=== PATIENT | female | born 1995 | race Caucasian/White ===

== ENCOUNTER 2021-01-05 00:19 | Inpatient (IN) ==
[2021-01-05] MEDS ORDERED: BUTORPHANOL 2 MG/ML VIAL IV PRN (00:30)
[2021-01-05] MEDS ORDERED: ONDANSETRON 4 MG/2 ML VIAL IV PRN ×2 (00:30→13:53)
[2021-01-05] MEDS ORDERED: LACTATED RINGERS 1,000 ML IV ONE (00:30)
[2021-01-05] MEDS ORDERED: MEPERIDINE 50 MG/1 ML VIAL IV PRN (00:30)
[2021-01-05] MEDS ORDERED: INFLUENZA VIRUS VACCINE 0.5 ML SYRINGE IM ONE (01:00)
[2021-01-05 01:13] LABS: Basophils % 0.2 % (0.0-0.8); Eosinophils % 0.1 % (0.00-10.9); Hemoglobin 10.9 GM/DL (12.0-16.0); Immature Granulocytes Absolute 0.17 #; Lymphocytes # 2.4 10*3/uL (1.4-4.0); Lymphocytes % 14.5 % (21.3-54.2); Mean Corpuscular HGB Conc 31.1 GM/DL (32-36); Mean Corpuscular Volume 86.6 FL (87-102); Monocytes % 8.4 % (1.7-12.7); Neutrophils % 75.8 % (38.7-73.9); Platelet Count 275 T/CUMM (130-400); Red Blood Count 4.04 MC/CUMM (3.8-5.5); Red Cell Distribution Width 13.8 % (9.3-17.3); White Blood Count 16.6 T/CUMM (4-12)
[2021-01-05 01:26] LABS: Alanine Aminotransferase 14 U/L (13-56); Albumin 2.8 G/DL (3.4-5.0); Alkaline Phosphatase 164 U/L (45-117); Aspartate Amino Transferase 15 U/L (0-37); Bilirubin,Total < 0.39 MG/DL (0.20-1.00); Blood Urea Nitrogen 9 MG/DL (7-18); Calcium 8.6 MG/DL (8.5-10.1); Carbon Dioxide 21 MMOL/L (21-32); Estimated Glom Filtration Rate 83 ML/MIN; Glucose 86 MG/DL (74-106); Osmolality,Calculated 270.8 MOS/KG (273-304); Potassium 3.9 MMOL/L (3.5-5.1); Sodium 137 MMOL/L (136-145); Total Protein 6.8 G/DL (6.4-8.2)
[2021-01-05] MEDS: LACTATED RINGERS 1,000 ML IV SCH ×2 (03:57→10:00)
[2021-01-05] MEDS ORDERED: OXYTOCIN/LR 20 UNIT/1,000 ML BAG IV SCH (07:30)
[2021-01-05] MEDS ORDERED: hydrOXYzine HCL 25 MG/1 ML VIAL IM PRN (08:15)
[2021-01-05] MEDS ORDERED: diphenhydrAMINE 50 MG/1 ML VIAL IV PRN ×2 (08:15)
[2021-01-05] MEDS ORDERED: ONDANSETRON 4 MG/2 ML VIAL IV ONE (08:15)
[2021-01-05] MEDS ORDERED: NALOXONE 0.4 MG/ML VIAL IV PRN (08:15)
[2021-01-05] MEDS ORDERED: PROMETHAZINE 25 MG/1 ML VIAL IM ONE (08:15)
[2021-01-05] MEDS ORDERED: FAMOTIDINE 20 MG/2 ML VIAL IV ONE (08:15)
[2021-01-05] MEDS ORDERED: CITRIC ACID/SODIUM CITRATE 30 ML UDCUP PO ONE (08:15)
[2021-01-05] MEDS ORDERED: fentaNYL 2 MCG/ROPIV 0.2% EPID 100 ML EPIDURAL SCH (08:30)
[2021-01-05] MEDS ORDERED: TERBUTALINE 1 MG/1 ML VIAL ONE (10:20)
[2021-01-05] MEDS: TERBUTALINE 1 MG/1 ML VIAL SUBCUT PRN ×2 (10:28→11:14)
[2021-01-05] MEDS: ePHEDrine 50 MG/ML VIAL IV PRN ×2 (11:10→11:11)
[2021-01-05 11:38] LABS: Bilirubin,Urine Negative (Negative); Blood, Urine Negative (Negative); Glucose,Urine (UA) Negative (Negative); Ketones,Urine Negative (Negative); Nitrite,Urine Negative (Negative); Protein,Urine Negative; Urine Appearance CLEAR (Clear); Urine Color Straw (Yellow); Urine Specific Gravity 1.008 (1.001-1.035); Urine Urobilinogen < 2.0 EU/DL (0.2-1.0)
[2021-01-05] MEDS ORDERED: miSOPROStoL 200 MCG TABLET ONE (11:45)
[2021-01-05] MEDS ORDERED: SODIUM CHLORIDE 0.9% 100 ML IV ONE (11:46)
[2021-01-05] MEDS ORDERED: TRANEXAMIC ACID 1,000 MG/10 ML VIAL ONE (11:46)
[2021-01-05] MEDS ORDERED: METHYLERGONOVINE 0.2 MG/1 ML AMP ONE (11:46)
[2021-01-05] MEDS ORDERED: CARBOPROST TROMETHAMINE 250 MCG/ML AMP IM ONE (11:46)
[2021-01-05 13:49] LABS: Cord Venous Blood HCO3 18.3 MMOL/L; Cord Venous Blood PCO2 38.6 MMHG; Cord Venous Blood PO2 27.5
[2021-01-05] MEDS ORDERED: DIPH/TET/ACEL PERT BOOSTER VACCINE 0.5 ML VIAL IM ONE (13:53)
[2021-01-05] MEDS ORDERED: oxyCODONE/ACETAMINOPHEN 5-325 MG TABLET PO PRN (13:53)
[2021-01-05] MEDS ORDERED: ACETAMINOPHEN 325 MG TABLET PO PRN (13:53)
[2021-01-05] MEDS ORDERED: MEASLES/MUMPS/RUBELLA VACCINE 0.5 ML VIAL SUBCUT ONE (13:53)
[2021-01-05] MEDS ORDERED: BISACODYL 10 MG SUPP RECTAL PRN (13:53)
[2021-01-05] MEDS ORDERED: RHO(D) IMMUNE GLOBULIN 300 MCG SYRINGE IM ONE (13:53)
[2021-01-05] MEDS ORDERED: HYDROCORTISONE 2.5% RECTAL CREAM 30 GM TUBE TOP PRN (13:53)
[2021-01-05] MEDS ORDERED: BENZOCAINE 20%/MENTHOL 0.5% SPRAY 56 GM CAN TOP PRN (13:53)
[2021-01-05] MEDS ORDERED: LANOLIN 50% CREAM 0.3 OZ TUBE TOP PRN (13:53)
[2021-01-05] MEDS ORDERED: WITCH HAZEL PADS 100/JAR TOP PRN (13:53)
[2021-01-05] MEDS ORDERED: OXYTOCIN/LR 20 UNIT/1,000 ML BAG IV ONE (13:53)
[2021-01-05] MEDS: oxyCODONE/ACETAMINOPHEN 5-325 MG TABLET PO PRN (17:45)
[2021-01-05] MEDS: DOCUSATE SODIUM 100 MG CAPSULE PO SCH (22:24)
[2021-01-05] MEDS: IBUPROFEN 800 MG TABLET PO PRN (22:33)
[2021-01-06] MEDS: oxyCODONE/ACETAMINOPHEN 5-325 MG TABLET PO PRN ×2 (01:31→23:56)
[2021-01-06 05:47] LABS: Basophils % 0.1 % (0.0-0.8); Eosinophils % 0.1 % (0.00-10.9); Hematocrit 27.3 VOL% (35.7-47.0); Hemoglobin 8.9 GM/DL (12.0-16.0); Immature Granulocytes % 0.7 %; Immature Granulocytes Absolute 0.11 #; Lymphocytes # 1.6 10*3/uL (1.4-4.0); Lymphocytes % 9.9 % (21.3-54.2); Mean Corpuscular HGB Conc 32.6 GM/DL (32-36); Mean Corpuscular Volume 86.1 FL (87-102); Mean Platelet Volume 11.9 FL (9.6-12.0); Neutrophils % 83.2 % (38.7-73.9); Platelet Count 213 T/CUMM (130-400); Red Blood Count 3.17 MC/CUMM (3.8-5.5); Red Cell Distribution Width 13.8 % (9.3-17.3); White Blood Count 16.5 T/CUMM (4-12)
[2021-01-06] MEDS: MULTIVITAMIN (PRENATAL) TABLET PO SCH (09:07)
[2021-01-06] MEDS: DOCUSATE SODIUM 100 MG CAPSULE PO SCH ×2 (09:07→20:39)
[2021-01-06] MEDS: FERROUS SULFATE 325 MG TABLET PO SCH ×2 (09:07→20:39)
[2021-01-06] MEDS: IBUPROFEN 800 MG TABLET PO PRN ×2 (09:12→18:08)
[2021-01-07] MEDS: IBUPROFEN 800 MG TABLET PO PRN ×2 (04:18→10:47)
[2021-01-07 08:57] VITALS: BP 112/62
[2021-01-07] MEDS ORDERED: INFLUENZA VIRUS VACCINE 0.5 ML SYRINGE IM ONE ×2 (09:00→11:30)
[2021-01-07] MEDS: MULTIVITAMIN (PRENATAL) TABLET PO SCH (10:42)
[2021-01-07] MEDS: FERROUS SULFATE 325 MG TABLET PO SCH (10:42)
[2021-01-07] MEDS: DOCUSATE SODIUM 100 MG CAPSULE PO SCH (10:42)
== END 2021-01-07 12:40 | disposition home or self-care (01) | DRG 768 ==
LOC: N.LD 00:19 → N.OB 21:34
PROVIDERS: ADMIT Obstetrics & Gynecology; ATTEND Obstetrics & Gynecology